=== PATIENT | female | born 1980 | race Caucasian/White ===

== ENCOUNTER 2020-05-29 18:24 | Emergency (ER) | payer OTHER, SELFPAY ==
[2020-05-29 18:26] VITALS: BP 142/93; PULSE 74; RESP 18; TEMP 36.3; O2SAT 100; BMI 43.1
--- NOTE | 2020-05-29 18:55 | CT_ITS ---
STUDY: CT ABDOMEN AND PELVIS WITH CONTRAST REASON FOR EXAM: Female, 40 years old. RIGHT FLANK AND RLQ PAIN X 5 DAYS. RADIATION DOSAGE (If Supplied By Facility): CTDIvol = ( 18.59 ) mGy, DLP = ( 1283.19 ) mGycm TECHNIQUE: Transaxial images were obtained from the dome of the diaphragm to the symphysis pubis without oral contrast. IV 100mL Isovue-[id number] was administered. Sagittal and coronal images were reconstructed. Individualized dose optimization techniques were used for this CT. COMPARISON: None. FINDINGS: The visualized lung bases are unremarkable. The visualized portions of the heart are within normal limits. Normal liver. Multiple gallstones noted without gallbladder wall thickening or pericholecystic fluid. Normal spleen. Normal pancreas. Normal bilateral adrenal glands. Normal right kidney. Normal left kidney. Normal visualized stomach. Normal small intestine. Normal colon. The appendix is visualized and appears normal. Normal abdominal aorta. Normal inferior vena cava. Normal retroperitoneum. Normal urinary bladder. Uterus is normal. Complex 3.4 cm right adnexal cyst. Fat-containing umbilical hernia. Normal osseous structures. CT/Abdomen/Pelvis W IV Cont ONLY IMPRESSION: Complex right adnexal cyst. Recommend follow-up pelvic ultrasound. Cholelithiasis. Electronically Signed: Dann Ratliff MD at 20:14 EST , Service support ,
--- NOTE | 2020-05-29 18:57 | ED.VISSUMM ---
- ER Visit Summary Date of Service: 05/29/20 Chief Complaint: Right flank and right lower quadrant abdominal pain History of Present Illness: The patient is a 40 F history of psoriasis. Patient states for 5 days she has had right flank and lower quadrant abdominal pain. She denies any nausea, vomiting or diarrhea. Last menstrual period was 05/08/2020. She denies any vaginal bleeding or discharge. She denies any dysuria. She denies any fever. Denies any trauma. She did say 10 days ago she noticed a small rash on the small of her right lower back that she thought was secondary to being bit by insects. She was seen at the urgent care put her on steroid cream and antibiotic. She said they made no difference. Physical Examination: Middle-aged female no acute distress vital signs stable afebrile. HEENT exam unremarkable. Neck nontender no lymphadenopathy. Lungs are clear equal symmetrical bilaterally. Heart regular rhythm no murmur. Abdomen is soft normal bowel sounds no peritoneal signs. Mild tenderness in the right lower quadrant. There is no rash in the flank or abdomen. There are no peritoneal signs. Extremities moves all 4. Neurovascular intact. No edema. Back nontender. On the small of her right lower back just lateral to the spine there is a small rashes about 1 to 2 square inch area. That could be early shingles. But it does not spread anywhere. It does not look infected. There is no abscess. Neurologically she is awake alert with no focal motor deficits. Test Results: White count 6. Hemoglobin 13. No bands. Chemistries normal normal creatinine gap. Liver enzymes normal. Serum test negative. CAT scan of the abdomen pelvis done with contrast shows a complex right adnexal cyst and incidental finding: Lithiasis. The cyst may or may not be causing her pain. She and I discussed that. And also to follow-up with her gallbladder. UA showed no nitrates 5-10 white cells 2+ bacteria culture was sent but she is having no urinary symptoms so I am not can treat at this time. Emergency Department Course and Treatment: Patient treated with Toradol for pain. Labs and CT flank study being obtained. Treatment Plan: Repeat exam at 2135 patient doing well. Disposition: Discharge Impression: Acute right flank and lower quadrant abdominal pain Right lower back rash rule out shingles Right adnexal complex cyst Incidental finding of cholelithiasis This note was generated with Dragon dictation software. It may contain incorrect words, spelling, and punctuation that were not noted in review of the chart prior to signing ED Disposition - Plan for ED Patient: Referrals: Cj Lauren MD [Primary Care Provider] -
[2020-05-29] MEDS: Ketorolac 30 MG/ML Syringe IV (19:13)
[2020-05-29] MEDS: 0.9% Normal Saline 1,000 ML 1000 ML IV (19:13)
[2020-05-29 19:21] LABS: Absolute Lymphocyte Count 2.19 X10^3/uL (0.83-4.51); Absolute Neutrophil Count 3.6 X10^3/uL (2.0-7.7); Basophil# 0.05 X10^3/uL; Basophil% 0.8 % (0-1); Eosinophil# 0.11 X10^3/uL; Eosinophils% 1.7 % (0-5); Hematocrit 41.9 % (37-47); Hemoglobin 13.9 g/dL (12.0-15.0); Lymphocyte # 2.19 X10^3/ul (4.0); Mean Corp Hgb Conc 33.2 g/dL (32-36); Mean Corpuscular Hgb 29.6 pg (27.0-32.0); Mean Corpuscular Volume 89.1 fL (81-99); Mean Platelet Vol. 9.3 fl (6.2-12.0); Monocyte# 0.49 X10^3/uL; Monocyte% 7.6 % (0-10); NRBC Flagged by Analyzer 0 % (0-5); Neutrophil # 3.59 X10^3/uL (2.7-7.7); Neutrophil % 55.6 % (47-70); Platelet Count 165 K/mm3 (150-450); RBC Distribution Width SD 39.3 fl (35.1-43.9); White Blood Count 6.5 K/mm3 (4.4-11.0)
[2020-05-29 19:30] LABS: Internal QC Validated? YES +Cl - CLEAR BKGD; Pregnancy, Serum, hCG Quali. NEGATIVE Negative
[2020-05-29 19:35] LABS: AST(SGOT) 17 U/L (15-37); Alanine Aminotransfer ALT/SGPT 28 U/L (13-56); Albumin, Serum 3.8 g/dL (3.2-5.0); Alkaline Phosphatase 65 U/L (45-117); Anion Gap 6 (5-15); BUN 16 mg/dL (7-18); BUN/Creat Ratio 17.8 RATIO (10-20); Bilirubin, Direct 0.08 mg/dL (0.00-0.30); Calcium,Total 8.5 mg/dL (8.5-10.1); Chloride 109 mmol/L (98-107); EST Glomerular Filtration Rate 74 mL/min (>60); Est Glom Filt Rate - Afr Amer 90 mL/min (>60); Estimated Creatinine Clearance 69.42 ml/min; Globulin 3.4 g/dL (2.2-4.2); Glucose 94 mg/dL (74-106); Potassium 4.2 mmol/L (3.5-5.1); Protein, Total 7.2 g/dL (6.4-8.2); Sodium Level 142 mmol/L (136-145)
[2020-05-29 20:14] LABS: Mucous, Urine 0 SEEN /hpf (<or=2+)
[2020-05-29 20:16] LABS: Color, Urine Yellow (Yellow); Glucose, Dipstick Normal (Normal); Ketone-Dipstick Negative (Negative); Leukocyte Esterase-Dipstick 500 /ul (Negative); Nitrite-Dipstick Negative (Negative); Occult Blood-Urine 10 /ul (Negative); Protein-Dipstick Negative (Negative); Urine Bilirubin Dipstick Negative (Negative); Urine Clarity Sl. Cloudy (Clear); Urine Urobilinogen Normal (Normal)
[2020-05-29 20:52] LABS: Bacteria 2+ /hpf (None Seen); Red Blood Cells-Urine 0-5 SEEN /hpf (0-5); Squamous Epithelial Cells - UA 0-5 SEEN /hpf (5-10); White Blood Cells 5-10 SEEN /hpf (0-5)
--- NOTE | 2020-05-29 22:01 | ED.DEP ---
ED Disposition - Plan for ED Patient: Disposition: Home or Assisted Living Instructions: ED Abdominal Pain Unkn Cause Fem Prescriptions: Hydrocodone/Acetaminophen [[place] 5-325 Tablet] 1 ea PO 4X/DAY PRN PRN 4 Days #14 tab PRN Reason: Pain 1-10 Or Fever Prescription Printed Referrals: Cj Lauren MD [Primary Care Provider] - As soon as possible Additional Instructions: The rash may or may not be shingles. Is not classic shingles but it could be the cause for your right flank pain. You also have a right ovarian complex cyst that will need further evaluation. Follow-up with your [employer] and you may need a pelvic ultrasound. You have incidental finding of gallstones. If there is become a problem with pain with eating or right upper quadrant abdominal pain you need to follow-up with a general surgeon. Limited [place] for pain. Otherwise Motrin.
[2020-05-29 22:10] VITALS: BP 138/80; PULSE 70; RESP 16; O2SAT 98
== END 2020-05-29 22:12 | disposition home or self-care (01) ==
PROVIDERS: Emergency Provider Emergency Medicine; PCP Family Medicine
DX: R10.31 Right lower quadrant pain (principal); R21 Rash and other nonspecific skin eruption; K80.20 Calculus of gallbladder without cholecystitis without obstruction
CPT/HCPCS: 74177; 80048; 80076; 81001; 84703; 85025; 87086; 87088; 99283; J7030; Q9967